=== PATIENT | female | born 1955 | race African-American/Black ===

== ENCOUNTER 2022-02-12 09:48 | Outpatient (CLI) | payer MEDICARE, MEDICAID | END 2022-02-12 09:49 | disposition home or self-care (01) | LOC: CSHMAMMO 09:48 | PROVIDERS: ATTEND Family Medicine | DX: Z12.31 Encounter for screening mammogram for malignant neoplasm of breast (principal); Z80.3 Family history of malignant neoplasm of breast; Z91.89 Other specified personal risk factors, not elsewhere classified | CPT/HCPCS: 77063; 77067 ==

== ENCOUNTER 2023-02-27 11:04 | Outpatient (CLI) | payer OTHER | END 2023-02-27 11:05 | disposition home or self-care (01) | LOC: CSHMAMMO 11:04 | PROVIDERS: ATTEND Nurse Practitioner Family | DX: Z12.31 Encounter for screening mammogram for malignant neoplasm of breast (principal); Z80.3 Family history of malignant neoplasm of breast; Z91.89 Other specified personal risk factors, not elsewhere classified | CPT/HCPCS: 77063; 77067 ==

== ENCOUNTER 2023-11-26 10:54 | Observation (INO) | payer OTHER ==
[2023-11-26 11:25] VITALS: BMI 35.0
[2023-11-26] MEDS ORDERED: Ondansetron ODT 4 MG TAB PO PRN (11:27)
[2023-11-26] MEDS ORDERED: Nitroglycerin 0.4 MG TAB (25 Tab Bottle) SL PRN ×2 (11:27→14:48)
[2023-11-26] MEDS ORDERED: Guaifenesin DM 100-10/5 ML UDCUP PO PRN (11:27)
[2023-11-26] MEDS ORDERED: Ondansetron PF 4 MG/2 ML Vial IVP PRN (11:27)
[2023-11-26] MEDS: Aspirin Chewable 81 MG TAB PO SCH (12:13)
[2023-11-26] MEDS: Rosuvastatin 20 MG TAB PO SCH (22:12)
[2023-11-26] MEDS: Ezetimibe 10 MG TAB PO SCH (22:13)
[2023-11-26] MEDS: Sacubitril 49 MG/Valsartan 51 MG TABLET PO SCH (22:19)
[2023-11-27 05:09] LABS: #Basophils 0.02 10x3/uL (0.0-0.2); #Eosinphils 0.13 10x3/uL (0.0-0.5); #Neutrophils 2.74 10x3/uL (1.5-8.4); %Basophils 0.4 % (0.0-2.0); %Eosinophils 2.5 % (0.0-6.0); %Lymphocytes 36.2 % (18.0-47.0); %Monocytes 7.7 % (0.0-10.0); Hematocrit 43.5 % (34.9-44.5); Hemoglobin 14.1 g/dL (12.0-15.5); Mean Corpuscular HGB CONC 32.4 g/dL (32.0-36.0); Mean Corpuscular Hemoglobin 27.4 pg (27.0-33.0); Mean Corpuscular Volume 84.5 fl (81.6-98.3); Mean Platelet Volume 11.9 fl (7.4-10.4); Platelet Count 202 10x3/uL (150-450); RBC Distribution Width 14.3 % (11.5-14.5); Red Blood Cell (RBC) Count 5.15 10x6/uL (3.90-5.03); White Blood Cell (WBC) Count 5.2 10x3/uL (3.5-10.5)
[2023-11-27 05:11] LABS: Anion Gap 13 mmol/L (10-20); BUN (Urea Nitrogen) 27 mg/dL (9.8-20.1); Calc. Creatinine Clearance 63 mL/min (70-130); Calcium 9.5 mg/dL (7.8-10.44); Carbon Dioxide 21 mmol/L (23-31); Chloride 107 mmol/L (98-107); Estimated GFR 47; Glucose 116 mg/dL (80-115); Potassium 4.3 mmol/L (3.5-5.1); Sodium 137 mmol/L (136-145)
[2023-11-27] MEDS: Isosorbide Mononitrate 60 MG ER.TAB PO SCH (09:10)
[2023-11-27] MEDS: BuPROPion XL 150 MG ER.TAB PO SCH (09:10)
[2023-11-27] MEDS: Aspirin Chewable 81 MG TAB PO SCH ×2 (09:10→10:53)
[2023-11-27] MEDS: Empagliflozin 25 MG TAB PO SCH (09:11)
[2023-11-27] MEDS: Multivit, Therapeutic 1 TAB PO SCH (09:11)
[2023-11-27] MEDS: Furosemide 20 MG TAB PO SCH (09:11)
[2023-11-27] MEDS: Loratadine 10 MG TAB PO SCH (09:11)
[2023-11-27 12:13] VITALS: BP 131/70; TEMP 98.1
== END 2023-11-27 14:40 | disposition home or self-care (01) ==
LOC: CSHTELE 10:54 → INTOOBSV 10:54
PROVIDERS: ADMIT Emergency Medicine; ATTEND Internal Medicine
PROC: B246ZZZ Ultrasonography of Right and Left Heart (ICD-10-PCS; principal; 2023-11-26)
DX: R07.2 Precordial pain (principal); I25.10 Atherosclerotic heart disease of native coronary artery without angina pectoris; I13.0 Hypertensive heart and chronic kidney disease with heart failure and stage 1 through stage 4 chronic kidney disease, or unspecified chronic kidney disease; N18.30 Chronic kidney disease, stage 3 unspecified; I50.30 Unspecified diastolic (congestive) heart failure; E11.22 Type 2 diabetes mellitus with diabetic chronic kidney disease; E78.5 Hyperlipidemia, unspecified; Z88.2 Allergy status to sulfonamides; Z79.82 Long term (current) use of aspirin; Z79.899 Other long term (current) drug therapy; Z90.710 Acquired absence of both cervix and uterus
CPT/HCPCS: 80048; 85025; 93005; 93306; 94760 ×2; G0378 ×2; 36415; 93010

== ENCOUNTER 2025-03-03 10:07 | Outpatient (CLI) | payer OTHER | END 2025-03-03 10:08 | disposition home or self-care (01) | LOC: CSHMAMMO 10:07 | PROVIDERS: ATTEND Nurse Practitioner Family | DX: Z12.31 Encounter for screening mammogram for malignant neoplasm of breast (principal); Z80.3 Family history of malignant neoplasm of breast; Z91.89 Other specified personal risk factors, not elsewhere classified | CPT/HCPCS: 77063; 77067 ==